=== PATIENT | female | born 1975 | race Caucasian/White ===

== ENCOUNTER → 2016-09-09 | Outpatient (CLI) | payer OTHER ==
[~2016-09-09] MED LIST: HEPARIN for IV BOLUS 10,000 UNIT/10 ML VIAL. IV ONE
[2016-09-09 08:10] LABS: BASO % 1 % (0-3); EOS % 2 % (0-3); HEMATOCRIT 44.2 % (36.0-47.0); HEMOGLOBIN 14.4 g/dL (12.0-15.5); LYMPH # 2.5 x10^3/uL (1.0-4.8); LYMPH % 34 % (24-48); MEAN CORPUSCULAR HEMOGLOBIN 30 pg (25-35); MEAN CORPUSCULAR HGB CONC 33 g/dL (31-37); MEAN CORPUSCULAR VOLUME 91 fL (79-100); MONO % 8 % (0-9); NEUT % 55 % (31-73); PLATELET COUNT 183 x10^3/uL (140-400); RED BLOOD COUNT 4.87 x10^6/uL (3.50-5.40); RED CELL DISTRIBUTION WIDTH 13.8 % (11.5-14.5); WHITE BLOOD COUNT 7.4 x10^3/uL (4.0-11.0)
[2016-09-09 08:34] LABS: ALBUMIN 3.9 g/dL (3.4-5.0); CALCIUM 9.2 mg/dL (8.5-10.1); CREATININE 0.7 mg/dL (0.6-1.0); GFR 92.7; TOTAL BILIRUBIN 0.4 mg/dL (0.2-1.0); TOTAL PROTEIN 7.9 g/dL (6.4-8.2)
[2016-09-09 08:40] LABS: CHOLESTEROL/HDL RATIO 2.7
== END | disposition home or self-care (01) ==
LOC: LAB 07:44
PROVIDERS: ATTEND Obstetrics & Gynecology
DX: Z01.419 Encounter for gynecological examination (general) (routine) without abnormal findings (principal)
CPT/HCPCS: 36415; 80053; 80061; 83036; 84443; 85027

== ENCOUNTER 2016-11-16 19:07 | Emergency (ER) | payer OTHER ==
[~2016-11-16] VITALS: Ht 175.3 cm; Wt 86.2 kg
--- NOTE | 2016-11-16 20:03 | PHYS DOC ---
Past Medical History Past Medical History: No Pertinent History Past Surgical History: No Surgical History Alcohol Use: Occasionally Drug Use: None Adult General Chief Complaint Chief Complaint: EYE PROBLEMS HPI HPI Patient is a 41 year old female who presents with left mid face slight numbness associated with mild gradual onset achy headache behind left eye. Headache is exactly like other headaches and she does not want any meds for it at this time. She denies vision changes, tingling, weakness, dizziness, tinnitus, hearing changes, difficulty swallowing or speaking, dyspnea, chest pain, abdominal pain, n/v, f/c, rash, injury. Review of Systems Review of Systems Constitutional: Denies fever or chills [] Eyes: Denies change in visual acuity, redness, or eye pain [] HENT: Denies nasal congestion or sore throat [] Respiratory: Denies cough or shortness of breath [] Cardiovascular: No additional information not addressed in HPI [] GI: Denies abdominal pain, nausea, vomiting, bloody stools or diarrhea [] : Denies dysuria or hematuria [] Musculoskeletal: Denies back pain or joint pain [] Integument: Denies rash or skin lesions [] Neurologic: Denies focal weakness [] Endocrine: Denies polyuria or polydipsia [] Allergies Allergies Allergies Coded Allergies Type Severity Reaction Last Updated Verified morphine Allergy Mild RASH 11/16/16 Yes Physical Exam Physical Exam Constitutional: Well developed, well nourished, no acute distress, non-toxic appearance. [] HENT: Normocephalic, atraumatic, bilateral external ears normal, oropharynx moist, nose normal. Normal TMs. No face or ear rash. [] Eyes: PERRLA, EOMI, conjunctiva normal, no discharge, no proptosis. [] Neck: Normal range of motion, supple. [] Cardiovascular:Heart rate regular rhythm [] Lungs & Thorax: Bilateral breath sounds clear to auscultation [] Abdomen: Bowel sounds normal, soft, no tenderness. [] Skin: Warm, dry, no erythema, no rash. [] Back: Normal ROM. [] Extremities: No tenderness, ROM intact, no edema. [] Neurologic: Alert and oriented X 3, normal motor function, normal sensory function in extremities, cranial nerves II through XII intact with the exception of diminished sensation to left midface to light touch in area of V2. [] Psychologic: Affect normal, judgement normal, mood normal. [] Current Patient Data Vital Signs Vital Signs Date Time Temp Pulse Resp B/P (MAP) Pulse Ox O2 Delivery O2 Flow Rate FiO2 11/16/16 19:27 98.0 103 20 139/91 (107) 99 Room Air 98.0 Lab Values Laboratory Tests Test 11/16/16 18:19 POC Urine HCG, Qualitative Hcg negative (Negative) Radiology/Procedures Radiology/Procedures CT head without contrast IMPRESSION No evidence of acute intracranial abnormality. Electronically signed by: Mateusz Davidson (November 16, 2016 20:03:18) Course & Med Decision Making Course & Med Decision Making Head CT is unremarkable. No new symptoms while here in ED. Given anticipatory guidance and recommendation to follow up closely. Discussed to watch for rash for possible preherpetic pain. Will start on ASA daily. Discussed should follow up for possible TIA/Stroke as she does not want to be admitted for this. Return precautions given. She understands and agrees with plan. Dragon Disclaimer Dragon Disclaimer This electronic medical record was generated, in whole or in part, using a voice recognition dictation system. Departure Departure Impression: Primary Impression: Left facial numbness Disposition: 01 HOME, SELF-CARE Condition: STABLE Referrals: KIERA BRYANT MD (PCP) PIOTR BHAGAT MD Patient Instructions: Paresthesia, [id number] Additional Instructions: Take an aspirin 81mg daily. Follow up with neurology clinic within 1 week. Return for any concerns. Adrienne MENDOZA MD November 16, 2016 20:03
--- NOTE | 2016-11-16 20:05 | RAD ---
PROCEDURE CT without contrast dated 11/16/2016. HISTORY Study is severe headache. Pain behind left side. TECHNIQUE Contiguous axial imaging of the head was performed from skull base to vertex. No contrast administered.Exposure: One or more of the following individualized dose reduction techniques were utilized for this exam: 1. Automated exposure control. 2. Adjustment of the mA and/or kV according to patient size. 3. Use of iterative reconstruction technique. COMPARISON None. FINDINGS Ventricles and sulci within normal limits for age. No midline shift or mass effect. Brain parenchyma is of normal attenuation. No hemorrhage or extra-axial collection. Posterior fossa and brainstem unremarkable. Visualized paranasal sinuses and mastoid air cells are clear. No acute calvarial abnormality. IMPRESSION No evidence of acute intracranial abnormality. Electronically signed by: Mateusz Davidson (November 16, 2016 20:03:18)
[2016-11-16 20:08] VITALS: BP 118/83
== END 2016-11-16 20:29 | disposition home or self-care (01) ==
LOC: ER 19:07
DX: R20.0 Anesthesia of skin (principal); R51 Headache; Z88.5 Allergy status to narcotic agent
CPT/HCPCS: 70450; 81025; 84703; 99284-25